=== PATIENT | male | born 1960 | race Caucasian/White ===

== ENCOUNTER 2016-11-10 11:27 | Emergency (ER) | payer OTHER ==
[~2016-11-10] VITALS: Ht 182.9 cm; Wt 86.2 kg
[2016-11-10 13:55] LABS: Basophils # (auto) 0.1 uL; Basophils % (auto) 0.7 % (0.0-2.0); Eosinophils # (auto) 0.2 uL; Eosinophils % (auto) 2.3 % (0.0-7.0); Hematocrit 43.5 % (41.0-53.0); Hemoglobin 14.4 g/dL (13.5-17.5); Lymphocytes # (auto) 2.5 uL; Lymphocytes % (auto) 23.3 % (10.0-50.0); Mean Corpuscular Hemoglobin 30.4 pg (28.0-32.0); Mean Corpuscular Hgb Conc. 33.1 g/dL (32.0-36.0); Mean Corpuscular Volume 91.6 fL (80.0-100.0); Mean Platelet Volume 8.3 fL (7.4-10.4); Monocytes # (auto) 0.8 uL; Neutrophils # (auto) 6.9 uL; Neutrophils % (auto) 65.7 % (37.0-80.0); Platelet Count (auto) 266 10^3/uL (140-450); Red Cell Distribution Width 14.2 % (11.6-16.0); White Blood Cell 10.6 10^3/uL (4.4-10.8)
[2016-11-10 14:16] LABS: Albumin 3.9 g/dL (3.4-5.0); BUN/Creatinine Ratio 10.2; Calcium 8.7 mg/dL (8.5-10.1); Potassium 3.9 mmol/L (3.5-5.1)
[2016-11-10 15:33] LABS: Bilirubin, Total 0.9 mg/dL (0.2-1.0); Total Protein 7.2 g/dL (6.4-8.2)
[2016-11-10 18:11] VITALS: BP 110/65
== END 2016-11-10 19:01 | disposition home or self-care (01) ==
LOC: ER 11:27
DX: L03.116 Cellulitis of left lower limb (principal); L03.115 Cellulitis of right lower limb; J44.9 Chronic obstructive pulmonary disease, unspecified; F17.210 Nicotine dependence, cigarettes, uncomplicated
CPT/HCPCS: 36415; 80053; 85025; 93970

== ENCOUNTER 2017-09-08 15:31 | Inpatient (IN) | payer OTHER ==
[~2017-09-08] VITALS: Ht 182.9 cm; Wt 86.2 kg
[2017-09-08 16:29] LABS: Basophils # (auto) 0.1 uL; Basophils % (auto) 1.3 % (0.0-2.0); Eosinophils # (auto) 0.2 uL; Eosinophils % (auto) 1.5 % (0.0-7.0); Hematocrit 43.9 % (41.0-53.0); Hemoglobin 14.7 g/dL (13.5-17.5); Lymphocytes % (auto) 18.5 % (10.0-50.0); Mean Corpuscular Hemoglobin 30.8 pg (28.0-32.0); Mean Corpuscular Hgb Conc. 33.4 g/dL (32.0-36.0); Mean Corpuscular Volume 92.2 fL (80.0-100.0); Monocytes # (auto) 1.1 uL; Neutrophils # (auto) 7.5 uL; Neutrophils % (auto) 68.7 % (37.0-80.0); Nucleated Red Blood Cells % 0.1 %; Platelet Count (auto) 255 10^3/uL (140-450); Red Blood Cells 4.77 10^6/uL (4.5-5.90); White Blood Cell 10.9 10^3/uL (4.4-10.8)
[2017-09-08 16:47] LABS: BUN/Creatinine Ratio 17.6; Potassium 4.3 mmol/L (3.5-5.1)
[2017-09-08] MEDS ORDERED: cefTRIAXone 1GM/10ml IVPUSH 10 ML IV ONE ×2 (21:15→21:29)
[2017-09-08] MEDS ORDERED: KETOROLAC TROMETH 30 MG/ML 1ML VIAL IV ONE (21:15)
[2017-09-08] MEDS ORDERED: FUROSEMIDE 20 MG/2 ML VIAL IV ONE (23:15)
[2017-09-08] MEDS ORDERED: VANCOMYCIN 1GM/250ML 250 ML IV ONE (23:15)
[2017-09-09] MEDS ORDERED: ONDANSETRON HCL 4 MG/2 ML VIAL IV PRN
[2017-09-09] MEDS ORDERED: VANCOMYCIN PER PHARMACY 0 MG IV SCH
[2017-09-09] MEDS ORDERED: ACETAMINOPHEN 325 MG TAB PO PRN
[2017-09-09] MEDS ORDERED: TEMAZEPAM 15 MG CAP PO PRN
[2017-09-09] MEDS ORDERED: HYDROcodone-ACET 5/325MG TAB PO PRN
[2017-09-09 01:45] VITALS: BP 116/74
[2017-09-09 05:24] VITALS: BP 100/47
[2017-09-09 06:57] LABS: Basophils # (auto) 0.1 uL; Basophils % (auto) 0.8 % (0.0-2.0); Eosinophils # (auto) 0.2 uL; Hematocrit 41.6 % (41.0-53.0); Hemoglobin 14.2 g/dL (13.5-17.5); Lymphocytes # (auto) 2.1 uL; Lymphocytes % (auto) 21.7 % (10.0-50.0); Mean Corpuscular Hgb Conc. 34.1 g/dL (32.0-36.0); Monocytes # (auto) 0.9 uL; Neutrophils # (auto) 6.5 uL; Neutrophils % (auto) 66.5 % (37.0-80.0); Platelet Count (auto) 228 10^3/uL (140-450); Red Blood Cells 4.57 10^6/uL (4.5-5.90); Red Cell Distribution Width 13.8 % (11.8-14.3); White Blood Cell 9.8 10^3/uL (4.4-10.8)
[2017-09-09] MEDS ORDERED: VANCOMYCIN 1GM/250ML 250 ML IV SCH (07:00)
[2017-09-09 07:50] LABS: Albumin 3.4 g/dL (3.4-5.0); Bilirubin, Total 1.1 mg/dL (0.2-1.0); Calcium 8.1 mg/dL (8.5-10.1); Potassium 3.7 mmol/L (3.5-5.1); Total Protein 6.3 g/dL (6.4-8.2)
[2017-09-09 08:00] VITALS: BP 112/64
[2017-09-09 09:00] VITALS: BP 112/64
[2017-09-09] MEDS ORDERED: FUROSEMIDE 20 MG TAB PO SCH (10:00)
[2017-09-09] MEDS ORDERED: ENOXAPARIN SOD 40 MG/0.4 ML SYRINGE SC SCH (10:00)
[2017-09-09] MEDS ORDERED: FAMOTIDINE 20 MG TAB PO SCH (10:00)
[2017-09-09 13:00] VITALS: BP 99/61
[2017-09-09] MEDS ORDERED: cefTRIAXone 1GM/10ml IVPUSH 10 ML IV SCH (22:00)
== END 2017-09-09 17:00 | disposition home or self-care (01) | DRG 603 ==
LOC: ER 15:40 → OVERFLOW 15:41 → EAST 09-09 02:03
PROVIDERS: ADMIT Nurse Practitioner; ATTEND Internal Medicine
DX: L03.116 Cellulitis of left lower limb (principal); F17.210 Nicotine dependence, cigarettes, uncomplicated; J44.9 Chronic obstructive pulmonary disease, unspecified; L03.115 Cellulitis of right lower limb; Z87.828 Personal history of other (healed) physical injury and trauma
CPT/HCPCS: 36415; 71045; 80048; 80053; 83880; 85025; 93970; 96365; 96375; J1885